=== PATIENT | male | born 1965 | race Caucasian/White ===

== ENCOUNTER 2017-04-26 16:49 | Emergency (ER) | payer SELFPAY ==
[~2017-04-26] VITALS: Ht 175.3 cm; Wt 85.7 kg
[2017-04-26 16:53] VITALS: BP 132/80
[2017-04-26] MEDS ORDERED: DIPH,PERTUSS(ACELL),TET VAC/PF 0.5 ML IM-VACC ONE ×2 (17:20→17:30)
[2017-04-26] MEDS ORDERED: IBUPROFEN 200 MG TABLET ONE (17:20)
[2017-04-26] MEDS ORDERED: IBUPROFEN 200 MG TABLET PO ONE (17:30)
[2017-04-26] MEDS ORDERED: BACITRACIN ZINC OINT 500U/GM, 0.9 GM ONE (17:39)
[2017-04-26] MEDS ORDERED: L.E.T SOLUTION TP ONE ×2 (18:30)
== END 2017-04-26 19:41 | disposition home or self-care (01) ==
LOC: ED 18:59
DX: S93.491A Sprain of other ligament of right ankle, initial encounter (principal); S50.812A Abrasion of left forearm, initial encounter; Z23 Encounter for immunization; V29.9XXA Motorcycle rider (driver) (passenger) injured in unspecified traffic accident, initial encounter; Y93.89 Activity, other specified; Y99.8 Other external cause status; Y92.488 Other paved roadways as the place of occurrence of the external cause
CPT/HCPCS: 90471; 90715